=== PATIENT | male | born 1940 | race Caucasian/White ===

== ENCOUNTER 2017-06-05 14:14 | Inpatient (IN) ==
[2017-06-05] MEDS ORDERED: DEXTROSE 50% 25 GM/50 ML VIAL IV PRN (14:24)
[2017-06-05] MEDS ORDERED: GLUCAGON 1 MG VIAL IM PRN (14:24)
[2017-06-05] MEDS: IPRATROPIUM 500 MCG/2.5 ML NEB RESP TX SCH ×2 (15:48→22:53)
[2017-06-05] MEDS: LEVOFLOXACIN INJ 500 MG in PREMIX 1 EACH IV SCH (16:19)
[2017-06-05] MEDS: methylPREDNISolone SOD SUC 125 MG/2 ML VIAL IV SCH (16:19)
[2017-06-05] MEDS: CLINDAMYCIN INJ 300 MG in PREMIX 1 EACH IV SCH (16:20)
[2017-06-05 16:27] LABS: Basophils % 0.1 % (0.0-0.8); Hematocrit 36.6 VOL% (42.0-52.0); Hemoglobin 12.4 GM/DL (14.0-18.0); Immature Granulocytes % 0.7 %; Immature Granulocytes Absolute 0.08 #; Mean Corpuscular HGB Conc 33.9 GM/DL (32-36); Mean Corpuscular Hemoglobin 32 PG (27-34); Mean Corpuscular Volume 95.6 FL (87-102); Monocytes # 0.6 10*3/uL (0.11-0.8); Monocytes % 4.9 % (1.7-12.7); Neutrophils # 9.9 10*3/uL (1.4-7.4); Neutrophils % 85.3 % (38.7-73.9); Platelet Count 209 T/CUMM (130-400); Red Blood Count 3.83 MC/CUMM (3.8-5.5); Red Cell Distribution Width 13.8 % (9.3-17.3); White Blood Count 11.6 T/CUMM (4-12)
[2017-06-05 16:53] LABS: Albumin 2.8 G/DL (3.4-5.0); Bilirubin,Total 0.7 MG/DL (0.2-1.0); Calcium 9.3 MG/DL (8.5-10.1); Osmolality,Calculated 285.8 MOS/KG (273-304); Potassium 4.3 MMOL/L (3.5-5.1); Thyroid Stimulating Hormone 1.11 uIU/ml (0.358-3.74); Total Protein 6.7 G/DL (6.4-8.3)
[2017-06-05 16:58] LABS: Apearance,Urine CLEAR (Clear); Bilirubin,Urine Negative (Negative); Blood, Urine Negative (Negative); Glucose,Urine (UA) Negative (Negative); Ketones,Urine Negative (Negative); Mucus,Urine Occasional /LPF (Occasional); Nitrite,Urine Negative (Negative); Protein,Urine Negative; RBC,Urine 1 /HPF (0-4); Squamous Epithelial Cell,Urine Occasional /HPF (0-10); Urine Color Yellow (Yellow); Urine Specific Gravity 1.014 (1.001-1.035); Urine Urobilinogen < 2.0 EU/DL (0.2-1.0); WBC,Urine 2 /HPF (0-6)
[2017-06-05] MEDS: INSULIN REGULAR 100 UNIT/ML SUBCUT SCH ×2 (17:00→21:36)
[2017-06-05] MEDS ORDERED: ONDANSETRON 4 MG TABLET PO PRN (18:50)
[2017-06-05] MEDS: SODIUM CHLORIDE 0.45% 1,000 ML IV SCH (21:35)
[2017-06-05] MEDS: PRAVASTATIN 40 MG TABLET PO SCH (21:36)
[2017-06-05] MEDS: CARVEDILOL 12.5 MG TABLET PO SCH (21:36)
[2017-06-05] MEDS: INSULIN NPH/REGULAR 70/30 100 UNIT/ML SUBCUT SCH (21:36)
[2017-06-05] MEDS: ALFUZOSIN 10 MG TABLET PO SCH (21:37)
[2017-06-05] MEDS: METHOCARBAMOL 500 MG TABLET PO SCH (21:37)
[2017-06-05] MEDS: BENZONATATE 100 MG CAPSULE PO SCH (21:37)
[2017-06-06] MEDS: methylPREDNISolone SOD SUC 125 MG/2 ML VIAL IV SCH ×3 (01:18→16:30)
[2017-06-06] MEDS: CLINDAMYCIN INJ 300 MG in PREMIX 1 EACH IV SCH ×3 (01:20→16:31)
[2017-06-06 05:59] LABS: Basophils % 0.1 % (0.0-0.8); Hematocrit 34.4 VOL% (42.0-52.0); Hemoglobin 11.7 GM/DL (14.0-18.0); Immature Granulocytes % 0.8 %; Immature Granulocytes Absolute 0.06 #; Lymphocytes # 0.8 10*3/uL (1.4-4.0); Lymphocytes % 10.6 % (21.2-54.2); Mean Corpuscular Hemoglobin 33 PG (27-34); Mean Corpuscular Volume 95.6 FL (87-102); Monocytes # 0.1 10*3/uL (0.11-0.8); Monocytes % 1.5 % (1.7-12.7); Neutrophils # 6.5 10*3/uL (1.4-7.4); Platelet Count 210 T/CUMM (130-400); Red Cell Distribution Width 13.4 % (9.3-17.3); White Blood Count 7.5 T/CUMM (4-12)
[2017-06-06 06:24] LABS: Calcium 9.1 MG/DL (8.5-10.1); Potassium 4.3 MMOL/L (3.5-5.1)
[2017-06-06] MEDS: IPRATROPIUM 500 MCG/2.5 ML NEB RESP TX SCH ×2 (07:12→14:46)
[2017-06-06] MEDS: LEVOTHYROXINE 25 MCG TABLET PO SCH (07:39)
[2017-06-06] MEDS: CHOLECALCIFEROL 1,000 UNIT TABLET PO SCH (08:48)
[2017-06-06] MEDS: AMIODARONE 200 MG TABLET PO SCH (08:49)
[2017-06-06] MEDS: CARVEDILOL 12.5 MG TABLET PO SCH ×2 (08:49→20:32)
[2017-06-06] MEDS: FERROUS SULFATE 325 MG TABLET PO SCH (08:49)
[2017-06-06] MEDS: MULTIVITAMIN (OCUVITE) TABLET PO SCH (08:49)
[2017-06-06] MEDS: BENZONATATE 100 MG CAPSULE PO SCH ×3 (08:49→20:32)
[2017-06-06] MEDS: MONTELUKAST 10 MG TABLET PO SCH (08:49)
[2017-06-06] MEDS: ASPIRIN EC 81 MG TABLET PO SCH (08:49)
[2017-06-06] MEDS: OMEGA 3 ACID ETHYL ESTERS 1 GM CAPSULE PO SCH (08:50)
[2017-06-06] MEDS: POTASSIUM CHLORIDE 10 MEQ TABLET PO SCH (08:50)
[2017-06-06] MEDS: INSULIN NPH/REGULAR 70/30 100 UNIT/ML SUBCUT SCH ×2 (08:50→20:34)
[2017-06-06] MEDS: INSULIN REGULAR 100 UNIT/ML SUBCUT SCH ×4 (08:50→20:34)
[2017-06-06] MEDS: FUROSEMIDE 80 MG TABLET PO SCH ×2 (08:50→16:30)
[2017-06-06] MEDS: CYANOCOBALAMIN 500 MCG TABLET PO SCH (08:51)
[2017-06-06] MEDS: DULoxetine 30 MG CAPSULE PO SCH (08:51)
[2017-06-06] MEDS ORDERED: ONDANSETRON 4 MG/2 ML VIAL IV PRN (11:56)
[2017-06-06] MEDS: PANTOPRAZOLE 40 MG TABLET PO SCH (12:45)
[2017-06-06] MEDS: LEVOFLOXACIN INJ 500 MG in PREMIX 1 EACH IV SCH (16:30)
[2017-06-06] MEDS: SODIUM CHLORIDE 0.45% 1,000 ML IV SCH (16:32)
[2017-06-06] MEDS: ALFUZOSIN 10 MG TABLET PO SCH (20:32)
[2017-06-06] MEDS: PRAVASTATIN 40 MG TABLET PO SCH (20:33)
[2017-06-06] MEDS: METHOCARBAMOL 500 MG TABLET PO SCH (20:33)
[2017-06-07] MEDS: IPRATROPIUM 500 MCG/2.5 ML NEB RESP TX SCH ×3 (00:15→14:34)
[2017-06-07] MEDS: methylPREDNISolone SOD SUC 125 MG/2 ML VIAL IV SCH ×3 (00:37→16:27)
[2017-06-07] MEDS: CLINDAMYCIN INJ 300 MG in PREMIX 1 EACH IV SCH ×3 (00:38→16:27)
[2017-06-07] MEDS: LEVOTHYROXINE 25 MCG TABLET PO SCH (05:50)
[2017-06-07 06:09] LABS: Basophils % 0.1 % (0.0-0.8); Hematocrit 35.4 VOL% (42.0-52.0); Hemoglobin 11.5 GM/DL (14.0-18.0); Immature Granulocytes % 0.8 %; Immature Granulocytes Absolute 0.09 #; Lymphocytes % 8.8 % (21.2-54.2); Mean Corpuscular HGB Conc 32.5 GM/DL (32-36); Mean Corpuscular Hemoglobin 31 PG (27-34); Mean Corpuscular Volume 96.5 FL (87-102); Mean Platelet Volume 11.9 FL (9.6-12.0); Monocytes # 0.3 10*3/uL (0.11-0.8); Neutrophils # 9.8 10*3/uL (1.4-7.4); Neutrophils % 87.3 % (38.7-73.9); Platelet Count 248 T/CUMM (130-400); Red Blood Count 3.67 MC/CUMM (3.8-5.5); Red Cell Distribution Width 13.3 % (9.3-17.3); White Blood Count 11.2 T/CUMM (4-12)
[2017-06-07 06:38] LABS: Calcium 8.6 MG/DL (8.5-10.1); Osmolality,Calculated 293.7 MOS/KG (273-304); Potassium 4.4 MMOL/L (3.5-5.1)
[2017-06-07] MEDS: MULTIVITAMIN (OCUVITE) TABLET PO SCH (09:00)
[2017-06-07] MEDS: ASPIRIN EC 81 MG TABLET PO SCH (09:00)
[2017-06-07] MEDS: CYANOCOBALAMIN 500 MCG TABLET PO SCH (09:00)
[2017-06-07] MEDS: FERROUS SULFATE 325 MG TABLET PO SCH (09:00)
[2017-06-07] MEDS: AMIODARONE 200 MG TABLET PO SCH (09:00)
[2017-06-07] MEDS: MONTELUKAST 10 MG TABLET PO SCH (09:00)
[2017-06-07] MEDS: CARVEDILOL 12.5 MG TABLET PO SCH ×2 (09:00→21:37)
[2017-06-07] MEDS: DULoxetine 30 MG CAPSULE PO SCH (09:01)
[2017-06-07] MEDS: PANTOPRAZOLE 40 MG TABLET PO SCH (09:01)
[2017-06-07] MEDS: BENZONATATE 100 MG CAPSULE PO SCH ×3 (09:01→21:37)
[2017-06-07] MEDS: OMEGA 3 ACID ETHYL ESTERS 1 GM CAPSULE PO SCH (09:01)
[2017-06-07] MEDS: FUROSEMIDE 80 MG TABLET PO SCH ×2 (09:01→15:15)
[2017-06-07] MEDS: POTASSIUM CHLORIDE 10 MEQ TABLET PO SCH (09:01)
[2017-06-07] MEDS: CHOLECALCIFEROL 1,000 UNIT TABLET PO SCH (09:01)
[2017-06-07] MEDS: INSULIN NPH/REGULAR 70/30 100 UNIT/ML SUBCUT SCH ×2 (09:04→21:38)
[2017-06-07] MEDS: INSULIN REGULAR 100 UNIT/ML SUBCUT SCH ×4 (09:19→21:38)
[2017-06-07] MEDS: SODIUM CHLORIDE 0.45% 1,000 ML IV SCH (11:08)
[2017-06-07] MEDS: LEVOFLOXACIN INJ 500 MG in PREMIX 1 EACH IV SCH (15:15)
[2017-06-07] MEDS: METHOCARBAMOL 500 MG TABLET PO SCH (21:37)
[2017-06-07] MEDS: ALFUZOSIN 10 MG TABLET PO SCH (21:37)
[2017-06-07] MEDS: PRAVASTATIN 40 MG TABLET PO SCH (21:37)
[2017-06-08] MEDS: IPRATROPIUM 500 MCG/2.5 ML NEB RESP TX SCH ×3 (00:45→15:35)
[2017-06-08] MEDS: methylPREDNISolone SOD SUC 125 MG/2 ML VIAL IV SCH ×3 (01:34→16:21)
[2017-06-08] MEDS: CLINDAMYCIN INJ 300 MG in PREMIX 1 EACH IV SCH ×3 (01:35→16:23)
[2017-06-08] MEDS: LEVOTHYROXINE 25 MCG TABLET PO SCH (07:13)
[2017-06-08] MEDS: SODIUM CHLORIDE 0.45% 1,000 ML IV SCH (09:18)
[2017-06-08] MEDS: INSULIN REGULAR 100 UNIT/ML SUBCUT SCH ×4 (09:19→22:12)
[2017-06-08] MEDS: INSULIN NPH/REGULAR 70/30 100 UNIT/ML SUBCUT SCH ×2 (09:29→22:12)
[2017-06-08] MEDS: CHOLECALCIFEROL 1,000 UNIT TABLET PO SCH (09:30)
[2017-06-08] MEDS: FUROSEMIDE 80 MG TABLET PO SCH ×2 (09:30→15:12)
[2017-06-08] MEDS: BENZONATATE 100 MG CAPSULE PO SCH ×3 (09:30→22:10)
[2017-06-08] MEDS: ASPIRIN EC 81 MG TABLET PO SCH (09:30)
[2017-06-08] MEDS: MULTIVITAMIN (OCUVITE) TABLET PO SCH (09:31)
[2017-06-08] MEDS: AMIODARONE 200 MG TABLET PO SCH (09:31)
[2017-06-08] MEDS: CYANOCOBALAMIN 500 MCG TABLET PO SCH (09:31)
[2017-06-08] MEDS: OMEGA 3 ACID ETHYL ESTERS 1 GM CAPSULE PO SCH (09:31)
[2017-06-08] MEDS: MONTELUKAST 10 MG TABLET PO SCH (09:31)
[2017-06-08] MEDS: CARVEDILOL 12.5 MG TABLET PO SCH ×2 (09:31→22:11)
[2017-06-08] MEDS: FERROUS SULFATE 325 MG TABLET PO SCH (09:31)
[2017-06-08] MEDS: POTASSIUM CHLORIDE 10 MEQ TABLET PO SCH (09:31)
[2017-06-08] MEDS: DULoxetine 30 MG CAPSULE PO SCH (09:31)
[2017-06-08] MEDS: PANTOPRAZOLE 40 MG TABLET PO SCH (09:31)
[2017-06-08 12:16] LABS: Procalcitonin, S 0.21 ng/mL (<=0.15)
[2017-06-08] MEDS: LEVOFLOXACIN INJ 500 MG in PREMIX 1 EACH IV SCH (15:13)
[2017-06-08] MEDS: METHOCARBAMOL 500 MG TABLET PO SCH (22:10)
[2017-06-08] MEDS: ALFUZOSIN 10 MG TABLET PO SCH (22:10)
[2017-06-08] MEDS: PRAVASTATIN 40 MG TABLET PO SCH (22:11)
[2017-06-09] MEDS: IPRATROPIUM 500 MCG/2.5 ML NEB RESP TX SCH ×4 (00:41→23:41)
[2017-06-09] MEDS: CLINDAMYCIN INJ 300 MG in PREMIX 1 EACH IV SCH ×3 (01:15→16:13)
[2017-06-09] MEDS: methylPREDNISolone SOD SUC 125 MG/2 ML VIAL IV SCH ×3 (01:15→16:13)
[2017-06-09 05:50] LABS: Basophils % 0.1 % (0.0-0.8); Hematocrit 38.2 VOL% (42.0-52.0); Hemoglobin 12.9 GM/DL (14.0-18.0); Immature Granulocytes Absolute 0.37 #; Lymphocytes # 0.7 10*3/uL (1.4-4.0); Lymphocytes % 5.3 % (21.2-54.2); Mean Corpuscular HGB Conc 33.8 GM/DL (32-36); Mean Corpuscular Hemoglobin 32 PG (27-34); Mean Corpuscular Volume 94.8 FL (87-102); Mean Platelet Volume 11.8 FL (9.6-12.0); Monocytes # 0.7 10*3/uL (0.11-0.8); Monocytes % 5.3 % (1.7-12.7); Neutrophils # 10.8 10*3/uL (1.4-7.4); Neutrophils % 86.3 % (38.7-73.9); Platelet Count 317 T/CUMM (130-400); Red Blood Count 4.03 MC/CUMM (3.8-5.5); Red Cell Distribution Width 13.3 % (9.3-17.3); White Blood Count 12.5 T/CUMM (4-12)
[2017-06-09 05:59] LABS: PT Patient Result 10.5 SECS; Partial Thromboplastin Time 25.6 SECS (0-40)
[2017-06-09 06:31] LABS: Calcium 9.3 MG/DL (8.5-10.1); Osmolality,Calculated 301.1 MOS/KG (273-304)
[2017-06-09] MEDS ORDERED: diphenhydrAMINE 50 MG/1 ML VIAL IM ONE (07:30)
[2017-06-09] MEDS ORDERED: BENZONATATE 100 MG CAPSULE PO ONE (07:30)
[2017-06-09] MEDS ORDERED: MEPERIDINE 50 MG/1 ML VIAL IM ONE (07:30)
[2017-06-09] MEDS ORDERED: LIDOCAINE 2% 20 ML VIAL RESP TX ONE (08:00)
[2017-06-09] MEDS ORDERED: LIDOCAINE 2% VISCOUS 100 ML BOTTLE SWISH/SPIT ONE (08:00)
[2017-06-09] MEDS ORDERED: LIDOCAINE 1% 20 ML VIAL MISC INJ ONE (08:00)
[2017-06-09] MEDS: BENZONATATE 100 MG CAPSULE PO SCH ×3 (09:01→21:43)
[2017-06-09] MEDS: INSULIN REGULAR 100 UNIT/ML SUBCUT SCH ×4 (09:01→21:44)
[2017-06-09] MEDS: LEVOTHYROXINE 25 MCG TABLET PO SCH (09:46)
[2017-06-09] MEDS: ASPIRIN EC 81 MG TABLET PO SCH (09:46)
[2017-06-09] MEDS: FUROSEMIDE 80 MG TABLET PO SCH ×2 (09:46→15:04)
[2017-06-09] MEDS: OMEGA 3 ACID ETHYL ESTERS 1 GM CAPSULE PO SCH (09:47)
[2017-06-09] MEDS: CYANOCOBALAMIN 500 MCG TABLET PO SCH (09:47)
[2017-06-09] MEDS: CHOLECALCIFEROL 1,000 UNIT TABLET PO SCH (09:47)
[2017-06-09] MEDS: CARVEDILOL 12.5 MG TABLET PO SCH ×2 (09:47→21:43)
[2017-06-09] MEDS: PANTOPRAZOLE 40 MG TABLET PO SCH (09:47)
[2017-06-09] MEDS: INSULIN NPH/REGULAR 70/30 100 UNIT/ML SUBCUT SCH (09:47)
[2017-06-09] MEDS: DULoxetine 30 MG CAPSULE PO SCH (09:47)
[2017-06-09] MEDS: MULTIVITAMIN (OCUVITE) TABLET PO SCH (09:47)
[2017-06-09] MEDS: AMIODARONE 200 MG TABLET PO SCH (09:47)
[2017-06-09] MEDS: FERROUS SULFATE 325 MG TABLET PO SCH (09:47)
[2017-06-09] MEDS: POTASSIUM CHLORIDE 10 MEQ TABLET PO SCH (09:47)
[2017-06-09] MEDS: MONTELUKAST 10 MG TABLET PO SCH (09:47)
[2017-06-09] MEDS: LEVOFLOXACIN INJ 500 MG in PREMIX 1 EACH IV SCH (15:04)
[2017-06-09] MEDS: METHOCARBAMOL 500 MG TABLET PO SCH (21:43)
[2017-06-09] MEDS: PRAVASTATIN 40 MG TABLET PO SCH (21:43)
[2017-06-09] MEDS: ALFUZOSIN 10 MG TABLET PO SCH (21:43)
[2017-06-10] MEDS: INSULIN NPH/REGULAR 70/30 100 UNIT/ML SUBCUT SCH ×3 (00:56→21:36)
[2017-06-10] MEDS: methylPREDNISolone SOD SUC 125 MG/2 ML VIAL IV SCH ×3 (01:50→16:01)
[2017-06-10] MEDS: CLINDAMYCIN INJ 300 MG in PREMIX 1 EACH IV SCH ×3 (01:52→17:03)
[2017-06-10 05:41] LABS: Osmolality,Calculated 296.7 MOS/KG (273-304); Potassium 3.8 MMOL/L (3.5-5.1)
[2017-06-10 06:33] LABS: Basophils % 0.1 % (0.0-0.8); Eosinophils % 0.1 % (0.00-10.9); Hematocrit 35.4 VOL% (42.0-52.0); Hemoglobin 11.5 GM/DL (14.0-18.0); Immature Granulocytes % 2.4 %; Immature Granulocytes Absolute 0.27 #; Lymphocytes # 1.2 10*3/uL (1.4-4.0); Lymphocytes % 10.1 % (21.2-54.2); Mean Corpuscular HGB Conc 32.5 GM/DL (32-36); Mean Corpuscular Hemoglobin 32 PG (27-34); Mean Corpuscular Volume 98.3 FL (87-102); Mean Platelet Volume 11.8 FL (9.6-12.0); Monocytes % 8.5 % (1.7-12.7); Neutrophils % 78.8 % (38.7-73.9); Platelet Count 288 T/CUMM (130-400); Red Cell Distribution Width 13.5 % (9.3-17.3); White Blood Count 11.4 T/CUMM (4-12)
[2017-06-10] MEDS: LEVOTHYROXINE 25 MCG TABLET PO SCH (07:05)
[2017-06-10] MEDS: IPRATROPIUM 500 MCG/2.5 ML NEB RESP TX SCH ×3 (07:09→23:20)
[2017-06-10] MEDS: INSULIN REGULAR 100 UNIT/ML SUBCUT SCH ×4 (07:15→21:36)
[2017-06-10] MEDS: CYANOCOBALAMIN 500 MCG TABLET PO SCH (08:40)
[2017-06-10] MEDS: CHOLECALCIFEROL 1,000 UNIT TABLET PO SCH (08:40)
[2017-06-10] MEDS: MULTIVITAMIN (OCUVITE) TABLET PO SCH (08:40)
[2017-06-10] MEDS: BENZONATATE 100 MG CAPSULE PO SCH ×3 (08:41→21:35)
[2017-06-10] MEDS: DULoxetine 30 MG CAPSULE PO SCH (08:41)
[2017-06-10] MEDS: ASPIRIN EC 81 MG TABLET PO SCH (08:41)
[2017-06-10] MEDS: POTASSIUM CHLORIDE 10 MEQ TABLET PO SCH (08:41)
[2017-06-10] MEDS: AMIODARONE 200 MG TABLET PO SCH (08:41)
[2017-06-10] MEDS: FUROSEMIDE 80 MG TABLET PO SCH ×2 (08:41→16:01)
[2017-06-10] MEDS: MONTELUKAST 10 MG TABLET PO SCH (08:41)
[2017-06-10] MEDS: PANTOPRAZOLE 40 MG TABLET PO SCH (08:41)
[2017-06-10] MEDS: FERROUS SULFATE 325 MG TABLET PO SCH (08:41)
[2017-06-10] MEDS: CARVEDILOL 12.5 MG TABLET PO SCH ×2 (08:42→21:35)
[2017-06-10] MEDS: OMEGA 3 ACID ETHYL ESTERS 1 GM CAPSULE PO SCH (08:42)
[2017-06-10] MEDS: LEVOFLOXACIN INJ 500 MG in PREMIX 1 EACH IV SCH (16:01)
[2017-06-10] MEDS: PRAVASTATIN 40 MG TABLET PO SCH (21:35)
[2017-06-10] MEDS: ALFUZOSIN 10 MG TABLET PO SCH (21:35)
[2017-06-10] MEDS: METHOCARBAMOL 500 MG TABLET PO SCH (21:35)
[2017-06-11] MEDS: methylPREDNISolone SOD SUC 125 MG/2 ML VIAL IV SCH ×3 (01:17→16:17)
[2017-06-11] MEDS: CLINDAMYCIN INJ 300 MG in PREMIX 1 EACH IV SCH ×3 (01:17→17:15)
[2017-06-11] MEDS: LEVOTHYROXINE 25 MCG TABLET PO SCH (06:51)
[2017-06-11] MEDS: IPRATROPIUM 500 MCG/2.5 ML NEB RESP TX SCH ×3 (06:56→22:31)
[2017-06-11] MEDS: INSULIN REGULAR 100 UNIT/ML SUBCUT SCH ×4 (07:06→21:22)
[2017-06-11 07:37] LABS: Calcium 8.6 MG/DL (8.5-10.1); Osmolality,Calculated 291.1 MOS/KG (273-304); Potassium 4.2 MMOL/L (3.5-5.1)
[2017-06-11] MEDS: MONTELUKAST 10 MG TABLET PO SCH (09:13)
[2017-06-11] MEDS: FUROSEMIDE 80 MG TABLET PO SCH ×2 (09:13→16:17)
[2017-06-11] MEDS: MULTIVITAMIN (OCUVITE) TABLET PO SCH (09:13)
[2017-06-11] MEDS: PANTOPRAZOLE 40 MG TABLET PO SCH (09:13)
[2017-06-11] MEDS: CARVEDILOL 12.5 MG TABLET PO SCH ×2 (09:13→21:21)
[2017-06-11] MEDS: BENZONATATE 100 MG CAPSULE PO SCH ×3 (09:13→21:21)
[2017-06-11] MEDS: AMIODARONE 200 MG TABLET PO SCH (09:14)
[2017-06-11] MEDS: CHOLECALCIFEROL 1,000 UNIT TABLET PO SCH (09:14)
[2017-06-11] MEDS: CYANOCOBALAMIN 500 MCG TABLET PO SCH (09:14)
[2017-06-11] MEDS: OMEGA 3 ACID ETHYL ESTERS 1 GM CAPSULE PO SCH (09:14)
[2017-06-11] MEDS: DULoxetine 30 MG CAPSULE PO SCH (09:14)
[2017-06-11] MEDS: ASPIRIN EC 81 MG TABLET PO SCH (09:14)
[2017-06-11] MEDS: FERROUS SULFATE 325 MG TABLET PO SCH (09:14)
[2017-06-11] MEDS: INSULIN NPH/REGULAR 70/30 100 UNIT/ML SUBCUT SCH ×2 (09:14→21:22)
[2017-06-11] MEDS: POTASSIUM CHLORIDE 10 MEQ TABLET PO SCH (09:15)
[2017-06-11] MEDS: LEVOFLOXACIN INJ 500 MG in PREMIX 1 EACH IV SCH (16:17)
[2017-06-11] MEDS: METHOCARBAMOL 500 MG TABLET PO SCH (21:21)
[2017-06-11] MEDS: ALFUZOSIN 10 MG TABLET PO SCH (21:22)
[2017-06-11] MEDS: PRAVASTATIN 40 MG TABLET PO SCH (21:22)
[2017-06-12] MEDS: methylPREDNISolone SOD SUC 125 MG/2 ML VIAL IV SCH ×2 (01:45→09:15)
[2017-06-12] MEDS: CLINDAMYCIN INJ 300 MG in PREMIX 1 EACH IV SCH ×2 (01:45→09:14)
[2017-06-12 06:00] LABS: Basophils % 0.1 % (0.0-0.8); Hematocrit 34.8 VOL% (42.0-52.0); Hemoglobin 12.2 GM/DL (14.0-18.0); Immature Granulocytes % 2.1 %; Immature Granulocytes Absolute 0.25 #; Lymphocytes # 0.4 10*3/uL (1.4-4.0); Lymphocytes % 3.4 % (21.2-54.2); Mean Corpuscular HGB Conc 35.1 GM/DL (32-36); Mean Corpuscular Hemoglobin 33 PG (27-34); Mean Corpuscular Volume 92.8 FL (87-102); Mean Platelet Volume 11.8 FL (9.6-12.0); Monocytes # 0.5 10*3/uL (0.11-0.8); Monocytes % 3.9 % (1.7-12.7); Neutrophils % 90.5 % (38.7-73.9); Platelet Count 293 T/CUMM (130-400); Red Blood Count 3.75 MC/CUMM (3.8-5.5); Red Cell Distribution Width 13.1 % (9.3-17.3); White Blood Count 12.2 T/CUMM (4-12)
[2017-06-12 06:22] LABS: Calcium 9.1 MG/DL (8.5-10.1); Potassium 3.7 MMOL/L (3.5-5.1)
[2017-06-12 06:24] LABS: Hypochromasia 1+; Lymphocytes 3 % (20-55); Segmented Neutrophils 92 % (50-85); Total Cells Counted 100
[2017-06-12 06:25] LABS: Microcytosis Slight; Platelet Estimate Normal
[2017-06-12] MEDS: LEVOTHYROXINE 25 MCG TABLET PO SCH (06:41)
[2017-06-12] MEDS: IPRATROPIUM 500 MCG/2.5 ML NEB RESP TX SCH ×2 (07:49→23:30)
[2017-06-12] MEDS: INSULIN REGULAR 100 UNIT/ML SUBCUT SCH ×4 (08:08→21:06)
[2017-06-12] MEDS: POTASSIUM CHLORIDE 10 MEQ TABLET PO SCH (09:15)
[2017-06-12] MEDS: AMIODARONE 200 MG TABLET PO SCH (09:16)
[2017-06-12] MEDS: CYANOCOBALAMIN 500 MCG TABLET PO SCH (09:16)
[2017-06-12] MEDS: DULoxetine 30 MG CAPSULE PO SCH (09:16)
[2017-06-12] MEDS: MONTELUKAST 10 MG TABLET PO SCH (09:16)
[2017-06-12] MEDS: ASPIRIN EC 81 MG TABLET PO SCH (09:16)
[2017-06-12] MEDS: FERROUS SULFATE 325 MG TABLET PO SCH (09:16)
[2017-06-12] MEDS: PANTOPRAZOLE 40 MG TABLET PO SCH (09:16)
[2017-06-12] MEDS: CHOLECALCIFEROL 1,000 UNIT TABLET PO SCH (09:16)
[2017-06-12] MEDS: CARVEDILOL 12.5 MG TABLET PO SCH ×2 (09:16→20:49)
[2017-06-12] MEDS: MULTIVITAMIN (OCUVITE) TABLET PO SCH (09:16)
[2017-06-12] MEDS: OMEGA 3 ACID ETHYL ESTERS 1 GM CAPSULE PO SCH (09:17)
[2017-06-12] MEDS: INSULIN NPH/REGULAR 70/30 100 UNIT/ML SUBCUT SCH ×2 (09:17→21:58)
[2017-06-12] MEDS: FUROSEMIDE 80 MG TABLET PO SCH ×2 (09:18→14:59)
[2017-06-12] MEDS: BENZONATATE 100 MG CAPSULE PO SCH ×3 (09:19→20:49)
[2017-06-12] MEDS: predniSONE 20 MG TABLET PO SCH (11:55)
[2017-06-12] MEDS: LEVOFLOXACIN 500 MG TABLET PO SCH (14:59)
[2017-06-12] MEDS: CLINDAMYCIN 300 MG CAPSULE PO SCH ×2 (14:59→20:49)
[2017-06-12] MEDS: ALFUZOSIN 10 MG TABLET PO SCH (20:48)
[2017-06-12] MEDS: PRAVASTATIN 40 MG TABLET PO SCH (20:49)
[2017-06-12] MEDS: METHOCARBAMOL 500 MG TABLET PO SCH (20:49)
[2017-06-13] MEDS: CLINDAMYCIN 300 MG CAPSULE PO SCH ×2 (05:09→05:10)
[2017-06-13] MEDS: LEVOTHYROXINE 25 MCG TABLET PO SCH (06:44)
[2017-06-13] MEDS: IPRATROPIUM 500 MCG/2.5 ML NEB RESP TX SCH ×2 (07:22→10:04)
[2017-06-13] MEDS: INSULIN REGULAR 100 UNIT/ML SUBCUT SCH ×2 (08:10→12:38)
[2017-06-13] MEDS: POTASSIUM CHLORIDE 10 MEQ TABLET PO SCH (08:22)
[2017-06-13] MEDS: DULoxetine 30 MG CAPSULE PO SCH (08:22)
[2017-06-13] MEDS: FERROUS SULFATE 325 MG TABLET PO SCH (08:22)
[2017-06-13] MEDS: CYANOCOBALAMIN 500 MCG TABLET PO SCH (08:22)
[2017-06-13] MEDS: BENZONATATE 100 MG CAPSULE PO SCH (08:22)
[2017-06-13] MEDS: FUROSEMIDE 80 MG TABLET PO SCH (08:22)
[2017-06-13] MEDS: CHOLECALCIFEROL 1,000 UNIT TABLET PO SCH (08:22)
[2017-06-13] MEDS: MULTIVITAMIN (OCUVITE) TABLET PO SCH (08:22)
[2017-06-13] MEDS: MONTELUKAST 10 MG TABLET PO SCH (08:22)
[2017-06-13] MEDS: predniSONE 20 MG TABLET PO SCH (08:23)
[2017-06-13] MEDS: CARVEDILOL 12.5 MG TABLET PO SCH (08:23)
[2017-06-13] MEDS: ASPIRIN EC 81 MG TABLET PO SCH (08:23)
[2017-06-13] MEDS: INSULIN NPH/REGULAR 70/30 100 UNIT/ML SUBCUT SCH (08:23)
[2017-06-13] MEDS: AMIODARONE 200 MG TABLET PO SCH (08:23)
[2017-06-13] MEDS: OMEGA 3 ACID ETHYL ESTERS 1 GM CAPSULE PO SCH (08:23)
[2017-06-13] MEDS: LEVOFLOXACIN 500 MG TABLET PO SCH (08:24)
[2017-06-13] MEDS: PANTOPRAZOLE 40 MG TABLET PO SCH (08:24)
[2017-06-13 12:23] VITALS: BP 152/72
== END 2017-06-13 13:27 | disposition home or self-care (01) | DRG 166 ==
LOC: N.5E 14:57
PROVIDERS: ADMIT Internal Medicine Pulmonary Disease; ATTEND Internal Medicine Pulmonary Disease

== ENCOUNTER 2018-01-01 16:29 | Inpatient (IN) ==
[2018-01-01] MEDS ORDERED: LIDOCAINE 1% 20 ML VIAL ONE ×2 (16:56→19:15)
[2018-01-01] MEDS ORDERED: HEPARIN/NACL 0.9% 2 UNITS/ML 500 ML IV ONE (18:46)
[2018-01-01 18:53] LABS: ABG Base Excess -14.7 MMOL/L (-2.5-2.5); ABG HCO3 12.4 MMOL/L (20-26); ABG Oxygen Saturation 36.2 % (95-100); ABG PCO2 56.5 MM HG (35-48); ABG TCO2 15.6 MMOL/L (23-27)
[2018-01-01 18:55] LABS: ABG PH 7.064 (7.35-7.45)
[2018-01-01 18:56] LABS: ABG PO2 33.6 MM HG (80-95)
[2018-01-01] MEDS ORDERED: SODIUM BICARBONATE 50 MEQ/50 ML VIAL IV STA (19:02)
[2018-01-01] MEDS ORDERED: CALCIUM CHLORIDE 1,000 MG/10 ML SYRINGE IV ONE (19:10)
[2018-01-01] MEDS ORDERED: SODIUM BICARBONATE 50 MEQ/50 ML SYRINGE IV ONE (19:10)
[2018-01-01] MEDS ORDERED: EPINEPHrine 1 MG/10 ML SYRINGE ONE (19:10)
[2018-01-01] MEDS ORDERED: NOREPINEPHRINE 4 MG/4 ML VIAL IV ONE (20:00)
[2018-01-01] MEDS ORDERED: ALBUTEROL 2.5 MG/3 ML NEB RESP TX PRN (20:07)
[2018-01-01] MEDS: NOREPINEPHRINE 8 MG in SODIUM CHLORIDE 0.9% 242 ML IV PRN (20:10)
[2018-01-01] MEDS: SODIUM CHLORIDE 0.9% 1,000 ML IV SCH (20:25)
[2018-01-01] MEDS ORDERED: PROPOFOL 1,000 MG/100 ML BOTTLE IV SCH (20:30)
[2018-01-01] MEDS ORDERED: methylPREDNISolone SOD SUC 40 MG/1 ML VIAL IV SCH (21:00)
[2018-01-01] MEDS ORDERED: CEFTAROLINE 600 MG in SODIUM CHLORIDE 0.9% 100 ML IV SCH (21:00)
[2018-01-01] MEDS ORDERED: PANTOPRAZOLE 40 MG VIAL IV SCH (21:00)
[2018-01-02] MEDS ORDERED: INSULIN REGULAR 100 UNIT/ML SUBCUT SCH
[2018-01-02] MEDS: NOREPINEPHRINE 8 MG in SODIUM CHLORIDE 0.9% 242 ML IV PRN ×2 (00:21→03:51)
[2018-01-02] MEDS ORDERED: DOPamine 800 MG/250 ML PREMIX IV PRN (00:40)
[2018-01-02] MEDS ORDERED: DOPamine 800 MG/250 ML PREMIX IV ONE (00:43)
[2018-01-02] MEDS ORDERED: SODIUM BICARBONATE 50 MEQ/50 ML SYRINGE IV ONE (00:52)
[2018-01-02] MEDS ORDERED: SODIUM BICARB INJ 150 MEQ in STERILE WATER INJ 350 ML IV ONE (01:00)
[2018-01-02] MEDS ORDERED: AMIODARONE INJ 450 MG in DEXTROSE 5% 241 ML IV SCH (01:00)
[2018-01-02] MEDS ORDERED: AMIODARONE 450 MG/9 ML VIAL IV ONE (01:00)
[2018-01-02 01:14] LABS: ABG Base Excess -3.4 MMOL/L (-2.5-2.5); ABG HCO3 21.6 MMOL/L (20-26); ABG Oxygen Saturation 98.7 % (95-100); ABG PCO2 49.6 MM HG (35-48); ABG PH 7.286 (7.35-7.45); ABG TCO2 21.6 MMOL/L (23-27)
[2018-01-02 01:19] LABS: Basophils # 0.1 10*3/uL (0.0-0.2); Basophils % 0.2 % (0.0-0.8); Eosinophils % 0.1 % (0.00-10.9); Hematocrit 34.6 VOL% (42.0-52.0); Hemoglobin 10.4 GM/DL (14.0-18.0); Immature Granulocytes % 2.6 %; Immature Granulocytes Absolute 0.57 #; Lymphocytes % 4.6 % (21.2-54.2); Mean Corpuscular HGB Conc 30.1 GM/DL (32-36); Mean Corpuscular Hemoglobin 30 PG (27-34); Mean Corpuscular Volume 98.3 FL (87-102); Mean Platelet Volume 12.2 FL (9.6-12.0); Monocytes # 0.7 10*3/uL (0.11-0.8); Monocytes % 3.4 % (1.7-12.7); NRBC # 0.24 10*3/uL; Neutrophils # 19.2 10*3/uL (1.4-7.4); Neutrophils % 89.1 % (38.7-73.9); Platelet Count 180 T/CUMM (130-400); Red Blood Count 3.52 MC/CUMM (3.8-5.5); Red Cell Distribution Width 18.9 % (9.3-17.3); White Blood Count 21.5 T/CUMM (4-12)
[2018-01-02 02:13] LABS: Band Neutrophils 2 % (0-10); Lymphocytes 4 % (20-55); Platelet Estimate Normal; Segmented Neutrophils 88 % (50-85); Total Cells Counted 100
[2018-01-02 02:14] LABS: Anisocytosis Slight; Macrocytosis 2+; Polychromasia Slight
[2018-01-02 02:27] LABS: Albumin 2.1 G/DL (3.4-5.0); Bilirubin,Total 0.8 MG/DL (0.2-1.0); Calcium 9.2 MG/DL (8.5-10.1); Osmolality,Calculated 308.1 MOS/KG (273-304)
[2018-01-02 02:28] LABS: Potassium 7.3 MMOL/L (3.5-5.1)
[2018-01-02] MEDS ORDERED: SODIUM POLYSTYRENE SULFATE 15 GM/60 ML BOTTLE PER TUBE ONE (02:36)
[2018-01-02] MEDS: SODIUM CHLORIDE 0.9% 1,000 ML IV SCH (04:45)
[2018-01-02 05:56] VITALS: BP 39/28
[2018-01-02] MEDS ORDERED: LEVOTHYROXINE 25 MCG TABLET PO SCH (06:30)
== END 2018-01-02 05:44 | disposition expired | DRG 308 ==
LOC: N.CC 18:33
PROVIDERS: ADMIT Internal Medicine Cardiovascular Disease; ATTEND Internal Medicine Cardiovascular Disease